=== PATIENT | female | born 1975 | race Caucasian/White ===

== ENCOUNTER 2016-08-24 05:38 | Observation (INO) | payer OTHER ==
[~2016-08-24] VITALS: Ht 162.6 cm; Wt 90.2 kg
--- NOTE | 2016-08-29 08:25 | CO ---
ADMIT: 08/24/2016 RM/LOC: [address] [place] [address] MR#: [id number] [address] [address] ALEX PHAM [address] [place] [id number] Consultation SEX: F AGE: 40 : 1975 DATE OF CONSULTATION: 08/27/2016 ATTENDING PHYSICIAN: Jf Oquendo CONSULTING PHYSICIAN: Ulisses Jackson DO REASON FOR CONSULTATION: Hypocalcemia. HISTORY OF PRESENT ILLNESS: This is a pleasant 40-year-old female patient, who on underwent a thyroidectomy. Since that time, she has had trouble sustaining her calcium levels and this morning, I was asked to see the patient to assist with management. She again was admitted for total thyroidectomy with history of chronic hypothyroidism, requiring thyroid supplementation. PAST MEDICAL HISTORY: She has a history of thyromegaly. MEDICATIONS: Her only medication has been levothyroxine to date. ALLERGIES: SHE HAS NO ALLERGIES. PAST SURGICAL HISTORY: She has had prior tubal ligation, shoulder surgery, and tonsillectomy. FAMILY HISTORY: Noncontributory. SOCIAL HISTORY: She does not smoke. PHYSICAL EXAMINATION: GENERAL: She is pleasant, alert, but states she just does not feel well. VITAL SIGNS: Currently normal. HEART: Regular. LUNGS: Clear. ABDOMEN: Soft. ADMIT: 08/24/2016 RM/LOC: 9 [facility] MR#: [id number] [address] [place] [id number] ALEX PHAM [address] [place] [address] Consultation SEX: F AGE: 40 : 1975 LABORATORY AND X-RAY DATA: Her calcium is currently 6.6, but this is after multiple efforts at calcium replacement including IV calcium gluconate and oral calcium supplementation along with vitamin D supplementation. She also has a magnesium of 1.5, potassium 3.6. Parathyroid hormone level of 6.2. IMPRESSION: Hypocalcemia, hypomagnesemia status post thyroidectomy. PLAN: We are going to increase her calcium supplementation to 1200 mg p.o. q.4 hours. We will follow her calcium, recheck her magnesium, and check her vitamin D level. We will give her some potassium supplementation, and help and assist with her monitoring and care. Ulisses Jackson DO/ darci JOB #: [id number] CC: Jf Oquendo, Attending Physician NO FAMILY PHYSICIAN, Family Physician
[2016-08-29] MEDS ORDERED: LEVOTHYROXINE25 MCG PO (13:31)
[2016-08-29] MEDS ORDERED: ROCALTROL DP0.25 MCG PO (13:32)
[2016-08-29] MEDS ORDERED: ZANTAC DPS150 MG PO (13:32)
[2016-08-29] MEDS ORDERED: IBUPROFEN200 MG PO (13:32)
[2016-08-29] MEDS ORDERED: CALTRATE-600 D600 MG PO (13:33)
--- NOTE | 2016-09-06 09:26 | OR ---
ADMIT: 08/24/2016 RM/LOC: 619 [facility] MR#: [id number] [address] [place], [place] [address] ALEX PHAM [address] [place] [address] Operative/Delivery Room Report SEX: F AGE: 40 : 1975 SURGERY DATE: 08/24/2016 SURGEON: Jf Oquendo MD PREOPERATIVE DIAGNOSES: Thyromegaly with multiple thyroid nodules, bilateral. POSTOPERATIVE DIAGNOSES: Thyromegaly with multiple thyroid nodules, bilateral. OPERATION: Total thyroidectomy. ANESTHESIA: General oral endotracheal. ESTIMATED BLOOD LOSS: 200 mL. COMPLICATIONS: None. DRAINS: Aroldo-Sheridan 7 mm. PROCEDURE IN DETAIL: With the patient in supine position under general oral endotracheal anesthesia, her neck was extended slightly. The anterior neck was prepped with ChloraPrep, allowed 3 minutes to dry and the patient was draped sterilely. An incision was made following natural skin crease that had been marked preoperatively through skin, subcutaneous tissue, and platysma muscle. Skin flaps were then elevated superiorly and inferiorly exposing the strap muscles, which were in the midline. This exposed a large thyroid gland. Each lobe was multilobulated, firm, and markedly enlarged. The left lobe was excised initially. The left lobe was friable and during the procedure, the capsule tore in several locations during retraction, but dissection was continued directly on the thyroid capsule. There were multiple blood vessels feeding the gland. The major vessels of the superior and inferior thyroid artery and vein and the middle thyroid vein were identified, clamped, divided, and coagulated. There were multiple smaller vessels that required clamping and coagulation through the procedure. During the procedure tissue consistent with the inferior parathyroid gland was identified and preserved separate from the gland. The superior parathyroid gland was adhered to the posterior capsule of the gland, but this was dissected free of the gland and preserved. The recurrent laryngeal nerve was identified, its identity and function confirmed intact by NIM-2 stimulation. The gland was pedicled at Galeano's ligament, which was transected with sharp dissection. The gland was then pedicled at the isthmus. The right lobe was then removed in very similar fashion. Right lobe was larger than that of the left. Dissection had very similar findings with multiple prominent vessels throughout. During the procedure, she lost approximately 200 mL of blood, but hemostasis was obtained through the procedure by clamping and coagulation. Again, the superior parathyroid gland was here to the posterior capsule of the thyroid dissected free of the capsule and remained in its normal anatomic ADMIT: 08/24/2016 RM/LOC: 619 [facility] MR#: [id number] [address] [address] [facility] [address] [place] [address] Operative/Delivery Room Report SEX: F AGE: 40 : 1975 position. The recurrent laryngeal nerve was identified and preserved with its function confirmed intact by NIM-2 stimulation. Galeano's ligament was transected and the gland was then removed from the field. The wound was irrigated with saline, cleaned with suctioning. There was good hemostasis. Following the procedure, a 7 mm Aroldo-Sheridan drain was placed, brought out the left side of strap muscles and incision. The wound was closed in layers with 3-0 chromic catgut to the midline strap muscles, inverted simple stitch to the platysmal layer, and a running horizontal mattress suture to the skin. The drain was sutured to the skin with silk. She emerged from general anesthesia in the operating room, was extubated in the operating room and transferred to the recovery room in good condition. She experienced no stridor nor airway distress. PTH level will be drawn in the recovery room. Jf Oquendo MD/ darci JOB #: [id number] CC: Jf Oquendo MD, Attending Physician NO FAMILY PHYSICIAN, Family Physician
--- NOTE | 2016-09-06 09:33 | HP ---
ADMIT: 08/24/2016 RM/LOC: [facility] MR#: [id number] [address] [address] ALEX PHAM [address] [place] [address] Pre-OP History and Physical SEX: F AGE: 40 : 1975 DATE OF SERVICE: HISTORY OF PRESENT ILLNESS: Alex is 40 years old. She is admitted for total thyroidectomy. She has marked thyromegaly with multiple thyroid nodules bilaterally. She has chronic hypothyroidism requiring thyroid hormone replacement. Surgical removal of the gland has been elected. We have discussed options in treatment for condition and after discussing the pros and cons as well as risks of surgery, we have elected proceed with total thyroidectomy. This will require a life long thyroid hormone replacement of which she is in acceptance of. She is admitted at this time for general anesthesia. Three years previous, she had fine needle aspirate biopsy, which appear benign, but showed Hurthle cell changes. The nodules and the gland have enlarged as evidenced by series of ultrasounds where the right lobe now measures 8.2 cm and the left 6.4 cm. MEDICATIONS PRIOR: Levothyroxine 50 mcg daily. ALLERGIES: NONE. PAST MEDICAL HISTORY: Tubal ligation, shoulder surgery, and tonsillectomy. REVIEW OF SYSTEMS: She has no known lower respiratory, cardiovascular, gastrointestinal, genitourinary, hematologic, or neurologic disorders. She does have pharyngeal compression symptoms, which appears related to the thyromegaly. FAMILY HISTORY: No known anesthetic complications. No coagulopathies. No known thyroid disease. SOCIAL HISTORY: She does not use tobacco. PHYSICAL EXAMINATION: GENERAL: Alex is 40 years old, 5 feet 4 inches, 200 pounds. HEENT: Pupils equal. No proptosis or nystagmus. Ears normal. Mouth and pharynx clear. Tonsils surgically absent. NECK: Large thyroid gland diffusely with multiple nodules, nontender, ADMIT: 08/24/2016 RM/LOC: [facility] MR#: [id number] [address] [address] ALEX PHAM M [address] [place] [address] Pre-OP History and Physical SEX: F AGE: 40 : 1975 nonfluctuant, and there is no cervical adenopathy palpable. Laryngeal structure and function normal. LUNGS: Clear. HEART: Rhythm regular. EXTREMITIES: Normal. IMPRESSION: 1. Marked thyromegaly with multiple thyroid nodules, pharyngeal compression symptoms. 2. Hypothyroid. PLAN: Total thyroidectomy. Jf Oquendo MD/ darci JOB #: [id number] CC: Jf Oquendo, Attending Physician UNKNOWN, Family Physician
--- NOTE | 2016-09-08 09:07 | DS ---
ADMIT: 08/24/2016 RM/LOC: 619 [facility] MR#: [id number] [address] [address] ALEX PHAM [address] [place] [address] Discharge Summary SEX: F AGE: 40 : 1975 ADMISSION DATE: 08/24/2016 DISCHARGE DATE: 08/29/2016 HOSPITAL COURSE: Alex was admitted for thyroid lobectomy and frozen section, which proved papillary thyroid carcinoma and underwent total thyroidectomy. Postop course was complicated by a hypocalcemia. Her calciums did decrease to a low of 6.7. The night of her procedure, she developed symptoms, but had remained asymptomatic thereafter although calciums remained in the high 6s to low 7s range. She was asymptomatic for 48 hours. His calcium was supplemented initially intravenously and subsequently by oral intake, and Rocaltrol. She was able to be dismissed with a calcium of 7.3 and no symptoms. She will continue calcium supplementation using Caltrate 600 mg q.i.d. or 1200 mg t.i.d. while at home. She experienced no voice change nor swallowing difficulties and minimal pain. She will return for calcium recheck in two days to [facility]. IMPRESSION: 1. Papillary thyroid carcinoma. 2. Post thyroidectomy hypocalcemia. PROGNOSIS: Good. Jf Oquendo MD/ njv JOB #: [id number] CC: Jf Oquendo MD, Attending Physician NO FAMILY PHYSICIAN, Family Physician
== END 2016-08-29 11:25 | disposition home or self-care (01) ==
LOC: 6PED 05:38 → WOR 05:38 → 6PED 10:20
PROVIDERS: ADMIT Otolaryngology
PROC: 0GTK0ZZ Resection of Thyroid Gland, Open Approach (ICD-10-PCS; principal; 2016-08-24)
DX: E06.3 Autoimmune thyroiditis (principal); E03.9 Hypothyroidism, unspecified; Z79.899 Other long term (current) drug therapy; Z98.51 Tubal ligation status; Z98.890 Other specified postprocedural states; Z88.8 Allergy status to other drugs, medicaments and biological substances

== ENCOUNTER → 2016-08-31 | Outpatient (CLI) | payer OTHER ==
[~2016-08-31] MED LIST: CALTRATE-600 D600 MG PO; IBUPROFEN200 MG PO; LEVOTHYROXINE25 MCG PO; ROCALTROL DP0.25 MCG PO; ZANTAC DPS150 MG PO
== END | disposition home or self-care (01) ==
LOC: PTH.S 07:21
DX: E87.6 Hypokalemia (principal)

== ENCOUNTER → 2016-09-16 | Outpatient (CLI) | payer OTHER | END | disposition home or self-care (01) | LOC: PTH.S 11:53 | DX: E83.51 Hypocalcemia (principal); Z98.890 Other specified postprocedural states ==

== ENCOUNTER → 2016-10-12 | Outpatient (CLI) | payer OTHER | END | disposition home or self-care (01) | DX: E06.3 Autoimmune thyroiditis (principal); E89.0 Postprocedural hypothyroidism ==